=== PATIENT | male | born 1930 | race Caucasian/White ===

== ENCOUNTER → 2018-01-11 | Day surgery (SDC) | payer OTHER, MEDICARE ==
[~2018-01-11] VITALS: Ht 177.8 cm; Wt 77.1 kg
[~2018-01-11] MED LIST: AMLODIPINE BESYL5 M1 PO; ASPIRIN EC325 M2 PO; METAMUCIL660 GM PO; MULTIVITAMINS1 EAC9 PO; PRAVASTATIN SOD10 M2 PO; SYNTHROID125 MCG PO; TOPROL XL100 M1 PO
--- NOTE | 2018-01-11 12:09 | Operative Report ---
Operative/Inv Procedure Report Surgery Date: 01/11/18 Name of Procedure: Complex cataract extraction with intraocular lens implantation and repair of iris left eye Pre-Operative Diagnosis: Age-related cataract, pseudoexfoliation syndrome, and irritable dialysis left eye Post-Operative Diagnosis: Same Estimated Blood Loss: none Surgeon/Gift Packer: Jordan Ibanez MD Anesthesia: local monitored anesthesi, block Complications: None Operative/Procedure Note Note: Preoperatively the patient was noted to have 20/60 vision in the left eye . The risks, benefits, and alternatives to surgery were discussed at length with the patient. Informed consent was obtained. The patient was brought to the operating room where the left eye was prepped and draped in the normal sterile fashion. A speculum was placed on the left eye with good exposure. A stab incision was made using a paracentesis blade. Intracameral lidocaine was placed. Viscoelastic was used to form the anterior chamber. A clear corneal incision was made using keratome blade. A continuous curvilinear capsulorrhexis was made using a cystotome needle followed by Utrata forceps. There was no extension of the rhexis. Hydrodissection was performed using balanced salt solution. The cataract was removed using a stop and chop technique. Residual cortex was removed using coaxial irrigation and aspiration. The capsule was polished using irrigation and aspiration and the posterior capsule was cleaned using a balanced salt solution jet. There was no residual lens material inside the eye. The capsular bag was reformed using viscoelastic. A capsular tension ring was placed in the bag without complication. An intraocular lens MX60E of power 18.5 was verified and confirmed. It was loaded into an injector and injected into the eye. The lens was placed entirely within the capsular bag. Using 10-0 Prolene suture the iris and pupil were repaired using 4 interrupted McCannel-type sutures. Viscoelastic was evacuated using irrigation and aspiration. The wounds were stromally hydrated and the eye filled to physiologic pressure using balanced salt solution. Intracameral cefuroxime was placed. Speculum was removed and a shield was placed on the eye. The patient was brought to the recovery area without incident. Instructions were given to follow-up the next day for routine postoperative care.
== END ==
LOC: STS 01:53
DX: H25.89 Other age-related cataract (principal); H40.1420 Capsular glaucoma with pseudoexfoliation of lens, left eye, stage unspecified; I10 Essential (primary) hypertension; I25.10 Atherosclerotic heart disease of native coronary artery without angina pectoris; I25.2 Old myocardial infarction
CPT/HCPCS: J2001; J2250; V2632